=== PATIENT | female | born 1980 | race Caucasian/White ===

== ENCOUNTER 2017-04-11 15:30 | Emergency (ER) | payer MEDICAID ==
[~2017-04-11] VITALS: Ht 175.3 cm; Wt 82.9 kg
[~2017-04-11 15:30] MED LIST: FLUC150T PO
[2017-04-11 16:39] LABS: ASPARTATE AMINO TRANSFERASE 11 U/L (15-37); BLOOD UREA NITROGEN 8 mg/dL (7-18)
[2017-04-11] MEDS ORDERED: ONDANSETRON 2MG/ML, 2ML ONE (16:42)
[2017-04-11] MEDS ORDERED: MORPHINE SULFATE 4 MG/ML, 1ML ONE ×2 (16:42→17:32)
[2017-04-11] MEDS: MORPHINE SULFATE 4 MG/ML, 1ML IVPush PRN ×2 (16:52→17:33)
[2017-04-11] MEDS ORDERED: SODIUM CHLORIDE FLUSH 10ML SYR IVF ONE (17:00)
[2017-04-11] MEDS ORDERED: SODIUM CHLORIDE 0.9% 1,000ML IVBOLUS ONE (17:00)
[2017-04-11] MEDS ORDERED: ONDANSETRON 2MG/ML, 2ML IVPush ONE (17:00)
[2017-04-11] MEDS ORDERED: OMNIPAQUE 350 MG/ML, 100ML BOTTLE ONE (17:33)
[2017-04-11] MEDS ORDERED: DICYCLOMINE 10 MG/ML, 2ML IM ONE (18:00)
[2017-04-11 18:33] VITALS: BP 110/80
== END 2017-04-11 18:35 | disposition home or self-care (01) ==
LOC: ED 16:22
DX: R10.31 Right lower quadrant pain (principal); R10.32 Left lower quadrant pain
CPT/HCPCS: 36415; 74177; 80053; 81003; 83690; 85025; 96361; 96372; 96374; 96375; 96376; 99285; J0500; J2405; J7030; Q9967

== ENCOUNTER 2017-06-24 18:02 | Emergency (ER) | payer MEDICAID ==
[~2017-06-24] VITALS: Ht 175.3 cm; Wt 82.0 kg
[2017-06-24] MEDS ORDERED: ASPIRIN 81 MG TABLET CHEW PO ONE (19:00)
[2017-06-24 19:16] LABS: HEMATOCRIT 44.1 % (34.6-47.8); HEMOGLOBIN 14.9 g/dL (11.7-16.4); WHITE BLOOD COUNT 10.8 x10^3/uL (3.4-10)
[2017-06-24 19:27] LABS: ASPARTATE AMINO TRANSFERASE 10 U/L (15-37); BLOOD UREA NITROGEN 7 mg/dL (7-18)
[2017-06-24] MEDS ORDERED: ASPIRIN 81 MG TABLET CHEW ONE (19:32)
[2017-06-24 19:36] LABS: IS PT STATUS REG ER OR PRE ER? YES
[2017-06-24] MEDS ORDERED: LORazepam 1MG TABLET ONE (19:57)
[2017-06-24] MEDS ORDERED: LORazepam 1MG TABLET PO ONE (20:00)
[2017-06-24 20:09] VITALS: BP 122/68
== END 2017-06-24 20:13 | disposition home or self-care (01) ==
LOC: ED 20:07
DX: R07.2 Precordial pain (principal); F41.1 Generalized anxiety disorder; F17.200 Nicotine dependence, unspecified, uncomplicated
CPT/HCPCS: 36415; 71010; 80053; 84484; 85025; 93005; 99285

== ENCOUNTER 2017-08-07 17:51 | Emergency (ER) | payer MEDICAID ==
[~2017-08-07] VITALS: Ht 175.3 cm; Wt 81.6 kg
[2017-08-07] MEDS ORDERED: SODIUM CHLORIDE 0.9% 1,000ML IVBOLUS ONE (18:30)
[2017-08-07] MEDS ORDERED: ONDANSETRON 2MG/ML, 2ML IVPush ONE (18:30)
[2017-08-07 18:38] LABS: HEMATOCRIT 50.7 % (34.6-47.8); WHITE BLOOD COUNT 12.6 x10^3/uL (3.4-10)
[2017-08-07 18:47] LABS: BLOOD UREA NITROGEN 8 mg/dL (7-18)
[2017-08-07 18:52] LABS: ASPARTATE AMINO TRANSFERASE 20 U/L (15-37)
[2017-08-07] MEDS ORDERED: ONDANSETRON 2MG/ML, 2ML ONE (19:02)
[2017-08-07] MEDS ORDERED: KETOROLAC 30 MG/1 ML ONE (19:10)
[2017-08-07] MEDS ORDERED: KETOROLAC 30 MG/1 ML IVPush ONE (19:30)
[2017-08-07 20:20] VITALS: BP 100/67
== END 2017-08-07 20:22 | disposition home or self-care (01) ==
LOC: ED 18:32
DX: R10.84 Generalized abdominal pain (principal); R19.7 Diarrhea, unspecified; Z90.49 Acquired absence of other specified parts of digestive tract
CPT/HCPCS: 36415; 74022; 80053; 81001; 83690; 84703; 85025; 96361; 96374; 96375; 99285; J1885; J2405; J7030

== ENCOUNTER 2018-07-25 12:54 | Emergency (ER) | payer MEDICAID ==
[~2018-07-25] VITALS: Ht 175.3 cm; Wt 87.4 kg
[2018-07-25] MEDS ORDERED: SODIUM CHLORIDE FLUSH 10ML SYR IVF ONE (14:00)
[2018-07-25] MEDS ORDERED: MAALOX/HYOSCYAMINE/LIDOCAINE 45 ML BTL PO ONE (14:00)
[2018-07-25] MEDS ORDERED: ASPIRIN 81 MG TABLET CHEW PO ONE (14:00)
[2018-07-25 14:13] LABS: BASOPHILS # (AUTO) 0.03 x10^3/uL (0-0.1); BASOPHILS % (AUTO) 0 % (0-1); EOSINOPHILS # (AUTO) 0.24 x10^3/uL (0-0.4); EOSINOPHILS % (AUTO) 3 % (1-7); LYMPHOCYTES # (AUTO) 2.71 x10^3/uL (1-3.4); LYMPHOCYTES % (AUTO) 31 % (22-44); MD NO; MEAN CORPUSCULAR HEMOGLOBIN 28.5 pg (27.0-34.8); MEAN CORPUSCULAR HGB CONC 33.6 g/dL (32.4-35.8); MEAN PLATELET VOLUME 7.6 fL (7.4-10.4); MONOCYTES # (AUTO) 0.68 x10^3/uL (0.2-0.8); MONOCYTES % (AUTO) 8 % (2-9); NEUTROPHILS # (AUTO) 5.02 x10^3/uL (1.8-6.8); NEUTROPHILS % (AUTO) 58 % (42-75); PLATELET COUNT 335 x10^3/uL (130-400); RED BLOOD COUNT 4.87 x10^6/uL (3.82-5.3)
[2018-07-25] MEDS ORDERED: MAALOX/HYOSCYAMINE/LIDOCAINE 45 ML BTL ONE (14:14)
[2018-07-25] MEDS ORDERED: ASPIRIN 81 MG TABLET CHEW ONE (14:14)
[2018-07-25 14:15] LABS: ALANINE AMINOTRANSFERASE 19 U/L (12-78); ALBUMIN 3.8 g/dL (3.4-5.0); ANION GAP 7 mmol/L (5-15); CALCIUM 8.8 mg/dL (8.5-10.1); CHLORIDE 110 mmol/L (98-107); CREATININE 0.52 mg/dL (0.55-1.02)
[2018-07-25 14:19] LABS: ALKALINE PHOSPHATASE 63 U/L (45-117); BILIRUBIN,TOTAL 0.6 mg/dL (0.2-1.0); TOTAL PROTEIN 7.8 g/dL (6.4-8.2); TROPONIN I < 0.015 ng/mL (0.000-0.045)
[2018-07-25] MEDS ORDERED: MORPHINE SULFATE 4 MG/ML, 1ML ONE (15:07)
[2018-07-25] MEDS ORDERED: ONDANSETRON ODT 4 MG ONE (15:07)
[2018-07-25] MEDS ORDERED: FAMOTIDINE 20 MG/2 ML ONE (15:07)
[2018-07-25] MEDS ORDERED: ONDANSETRON ODT 4 MG PO ONE (15:30)
[2018-07-25] MEDS ORDERED: FAMOTIDINE 20 MG/2 ML IVP ONE (15:30)
[2018-07-25] MEDS ORDERED: MORPHINE SULFATE 4 MG/ML, 1ML IVPush PRN (15:30)
[2018-07-25] MEDS ORDERED: OMNIPAQUE 350 MG/ML, 100ML BOTTLE ONE (15:44)
[2018-07-25] MEDS ORDERED: METOCLOPRAMIDE 5 MG/ML, 2ML ONE (16:07)
[2018-07-25] MEDS ORDERED: HYDROmorphone 2 MG/ML, 1ML ONE (16:07)
[2018-07-25] MEDS: HYDROmorphone 2 MG/ML, 1ML IVPush PRN ×2 (16:11→16:30)
[2018-07-25] MEDS ORDERED: METOCLOPRAMIDE 5 MG/ML, 2ML IVPush ONE (16:30)
[2018-07-25 17:29] VITALS: BP 116/63
== END 2018-07-25 17:31 | disposition home or self-care (01) ==
LOC: ED 17:25
DX: R07.2 Precordial pain (principal); R10.13 Epigastric pain
CPT/HCPCS: 36415; 71046; 74177; 80053; 83690; 84484; 85025; 85379; 93005; 96374; 96375; 99285; J1170; J2765; Q0162; Q9967; S0028

== ENCOUNTER 2018-12-21 11:34 | Emergency (ER) | payer MEDICAID ==
[~2018-12-21] VITALS: Ht 175.3 cm; Wt 90.0 kg
[2018-12-21 11:36] VITALS: BP 115/80
== END 2018-12-21 13:57 | disposition home or self-care (01) ==
LOC: ED 12:26
DX: S40.021A Contusion of right upper arm, initial encounter (principal); S50.01XA Contusion of right elbow, initial encounter; S60.211A Contusion of right wrist, initial encounter; F17.200 Nicotine dependence, unspecified, uncomplicated; W10.9XXA Fall (on) (from) unspecified stairs and steps, initial encounter; Y93.89 Activity, other specified; Y92.009 Unspecified place in unspecified non-institutional (private) residence as the place of occurrence of the external cause; Y99.8 Other external cause status
CPT/HCPCS: 29105; 99283

== ENCOUNTER 2019-04-02 22:19 | Emergency (ER) | payer MEDICAID ==
[~2019-04-02] VITALS: Ht 175.3 cm; Wt 88.7 kg
[2019-04-02] MEDS ORDERED: ONDANSETRON ODT 4 MG ONE (22:40)
--- NOTE | 2019-04-02 22:45 | NUR ---
Labs drawn, pt medicated per MAR. Pt reports abdominal pain, bloating, nausea, and diarrhea. Pt states diarrhea has been getting more formed over the past couple of days and the bloating is new today.
[2019-04-02 22:49] LABS: BASOPHILS # (AUTO) 0.05 x10^3/uL (0-0.1); BASOPHILS % (AUTO) 1 % (0-1); EOSINOPHILS # (AUTO) 0.22 x10^3/uL (0-0.4); EOSINOPHILS % (AUTO) 2 % (1-7); LYMPHOCYTES # (AUTO) 3.14 x10^3/uL (1-3.4); LYMPHOCYTES % (AUTO) 30 % (22-44); MD NO; MEAN CORPUSCULAR HEMOGLOBIN 27.9 pg (27.0-34.8); MEAN CORPUSCULAR VOLUME 84.4 fL (80-100); MEAN PLATELET VOLUME 7.7 fL (7.4-10.4); MONOCYTES # (AUTO) 0.43 x10^3/uL (0.2-0.8); MONOCYTES % (AUTO) 4 % (2-9); NEUTROPHILS # (AUTO) 6.72 x10^3/uL (1.8-6.8); NEUTROPHILS % (AUTO) 64 % (42-75); PLATELET COUNT 330 x10^3/uL (130-400); RED BLOOD COUNT 5.09 x10^6/uL (3.82-5.3); RED CELL DISTRIBUTION WIDTH 14.4 % (9.6-15.2)
[2019-04-02] MEDS ORDERED: ONDANSETRON ODT 4 MG PO ONE (23:00)
[2019-04-02 23:02] LABS: ALANINE AMINOTRANSFERASE 20 U/L (12-78); ALBUMIN 3.8 g/dL (3.4-5.0); ANION GAP 7 mmol/L (5-15); CALCIUM 9.1 mg/dL (8.5-10.1); CHLORIDE 108 mmol/L (98-107); CREATININE 0.77 mg/dL (0.55-1.02)
[2019-04-02 23:06] LABS: ALKALINE PHOSPHATASE 59 U/L (45-117); BILIRUBIN,TOTAL 0.4 mg/dL (0.2-1.0); TOTAL PROTEIN 7.7 g/dL (6.4-8.2)
--- NOTE | 2019-04-02 23:20 | NUR ---
Dr. Rasmussen at bedside to discuss ED findings and POC.
--- NOTE | 2019-04-02 23:21 | NUR ---
Pt states that bloating and nausea decreased after Zofran admin.
[2019-04-02 23:23] VITALS: BP 107/53
--- NOTE | 2019-04-02 23:38 | NUR ---
Patient/Caregiver given discharge instructions and they have confirmed that they understand the instructions. Patient ambulatory with steady gait.
== END 2019-04-02 23:40 | disposition home or self-care (01) ==
LOC: ED 22:44
DX: A09 Infectious gastroenteritis and colitis, unspecified (principal); R11.0 Nausea; K21.9 Gastro-esophageal reflux disease without esophagitis; F41.1 Generalized anxiety disorder; Z90.49 Acquired absence of other specified parts of digestive tract; Z90.710 Acquired absence of both cervix and uterus
CPT/HCPCS: 36415; 80053; 83690; 84703; 85025; 99283; Q0162

== ENCOUNTER 2020-11-17 17:52 | Emergency (ER) | payer MEDICAID ==
[~2020-11-17] VITALS: Ht 175.3 cm; Wt 88.8 kg
--- NOTE | 2020-11-17 18:12 | NUR ---
SEEN AT ON SATURDAY FOR LT EAR PAIN/BODYACHES/COOK, NO RELIEF W/ ABX, STILL HAS 2 DAYS LEFT. NEGATIVE COVID TEST SATURDAY. IS ON AZRITHOMYCIN LAST 2 DAYS
[2020-11-17] MEDS ORDERED: DEXAMETHASONE 4 MG TABLET PO ONE (18:30)
[2020-11-17] MEDS ORDERED: DEXAMETHASONE 4 MG TABLET ONE (18:49)
[2020-11-17 19:31] VITALS: BP 110/60
== END 2020-11-17 19:35 | disposition home or self-care (01) ==
LOC: ED 19:31
DX: H92.02 Otalgia, left ear (principal); B34.9 Viral infection, unspecified; J02.9 Acute pharyngitis, unspecified; K21.9 Gastro-esophageal reflux disease without esophagitis
CPT/HCPCS: 99283